=== PATIENT | male | born 1960 | race Two or more races ===

== ENCOUNTER 2022-09-19 06:05 | Day surgery (SDC) | payer OTHER | END 2022-09-19 10:50 | disposition home or self-care (01) | LOC: AMB-ENDOS 06:05 | PROVIDERS: ATTEND Surgery | DX: D12.2 Benign neoplasm of ascending colon (principal); D12.3 Benign neoplasm of transverse colon; Z20.822 Contact with and (suspected) exposure to COVID-19; Z88.0 Allergy status to penicillin; Z83.71 Family history of colonic polyps ==

== ENCOUNTER 2023-06-09 06:57 | Day surgery (SDC) | payer OTHER | END 2023-06-09 11:35 | disposition home or self-care (01) | LOC: AMB-ENDOS 06:57 | PROVIDERS: ATTEND Surgery | DX: K63.5 Polyp of colon (principal); D12.0 Benign neoplasm of cecum; Z88.0 Allergy status to penicillin; Z88.1 Allergy status to other antibiotic agents ==